=== PATIENT | female | born 1975 | race Hispanic/Latino ===

== ENCOUNTER 2019-10-31 13:00 | Inpatient (IN) | payer BC ==
[~2019-10-31] VITALS: Ht 167.6 cm; Wt 91.0 kg
--- NOTE | 2019-11-05 08:39 | NUR ---
CALLED THE OFFICE AND SPOKE TO RADHA IN REGARDS TO HEMOGLOBIN OF 10.4, PER RADHA SHE WILL SHOW THE DOCTOR AND CALL IF ANY ORDERS.
[2019-11-05 09:47] VITALS: BP 140/79; PULSE 61
[2019-11-06] VITALS (25 sets, daily range): BP systolic 123–153; BP diastolic 65–95; PULSE 52–82; RESP 10–18; TEMP 97.3–99.2
[2019-11-06] MEDS: CALDOLOR 800MG+NS 250ML 250 ML IV SCH ×3 (05:00→18:17)
[2019-11-06] MEDS: CEFAZOLIN SODIUM 1 GM VIAL IVP SCH ×2 (05:00→07:49)
[2019-11-06] MEDS ORDERED: LIDOCAINE PF 2% 5ML ABBOJECT ONE (07:23)
[2019-11-06] MEDS ORDERED: PROPOFOL 10 MG/ML 20ML VIAL IV ONE (07:23)
[2019-11-06] MEDS ORDERED: MEPERIDINE-PF 25 MG/ML SYG ONE ×3 (07:23→10:21)
[2019-11-06] MEDS ORDERED: ROCURONIUM 10MG/1ML SYR 10 MG/ML ML ONE (07:23)
[2019-11-06] MEDS ORDERED: FENTANYL CITRATE PF 50 MCG/1 ML 5ML AMP IV ONE (07:23)
[2019-11-06] MEDS: LACTATED RINGERS 1000ML 1,000 ML IV SCH ×2 (07:45→08:48)
[2019-11-06] MEDS ORDERED: NEOSTIGMINE 5MG/5ML SYR IV ONE (09:07)
[2019-11-06] MEDS ORDERED: ONDANSETRON HCL 4 MG/2 ML VIAL IVP PRN (10:00)
[2019-11-06] MEDS ORDERED: MEPERIDINE-PF 75 MG/ML SYG IM PRN (10:00)
[2019-11-06] MEDS ORDERED: PROMETHAZINE HCL 25 MG/ML 1ML AMPULE IM PRN ×2 (10:00)
[2019-11-06] MEDS ORDERED: BISACODYL 10 MG SUPP.RECT RC PRN (10:00)
[2019-11-06] MEDS ORDERED: ACETAMINOPHEN-CODEINE 300/30MG TAB PO PRN ×2 (10:00)
[2019-11-06] MEDS ORDERED: SIMETHICONE 80 MG TAB.CHEW PO PRN (10:00)
[2019-11-06] MEDS: DEXTROSE 5 %-0.45 % NACL 1,000 ML IV PRN ×2 (10:58→22:29)
[2019-11-06] MEDS: HYDROCODONE/ACETAMINOPHEN 5/325 MG TAB PO PRN ×2 (13:02→23:49)
[2019-11-06] MEDS ORDERED: MEPERIDINE-PF 100 MG/ML SYG ONE (15:39)
[2019-11-06] MEDS: DOCUSATE SODIUM 100 MG CAP PO PRN (21:48)
--- NOTE | 2019-11-06 22:42 | NUR ---
Communication; Dr. Pruett informed of patient high Blood Pressure of 150/95 , 153/93 she ordered to continue her home medication.
--- NOTE | 2019-11-06 23:00 | NUR ---
Patient; Patient took her own medication Amlodipine 2.5 mg p.o.
[2019-11-07] MEDS: CALDOLOR 800MG+NS 250ML 250 ML IV SCH (02:06)
[2019-11-07 03:59] VITALS: BP 146/89; PULSE 81; RESP 18; TEMP 97.9
[2019-11-07] MEDS: CEFAZOLIN SODIUM 1 GM VIAL IVP SCH (05:00)
[2019-11-07] MEDS: HYDROCODONE/ACETAMINOPHEN 5/325 MG TAB PO PRN (06:19)
--- NOTE | 2019-11-07 06:25 | NUR ---
York; York Catheter taken out patient tolerated well. Aide care done with scant vaginal brownish discharges. Abdominal binder applied to abdomen. Patient assisted to get up dangle her legs and sit at bedside chair.
[2019-11-07 07:22] VITALS: BP 154/93; PULSE 83; RESP 17; TEMP 98.3
--- NOTE | 2019-11-07 07:45 | NUR ---
PATIENT ASSESSED AND INCISION WITH DERMABOND LEFT OPEN TO AIR. AND NO DRAINAGE NOTED TO SITE AND NO REDNESS OR EDEMA NOTED. DENIES HAVING PAIN.
[2019-11-07] MEDS: DOCUSATE SODIUM 100 MG CAP PO PRN (08:32)
[2019-11-07] MEDS: DEXTROSE 5 %-0.45 % NACL 1,000 ML IV PRN (08:40)
[2019-11-07] MEDS ORDERED: FERROUS SULFATE 325 MG TABLET.DR PO SCH (09:00)
[2019-11-07] MEDS ORDERED: SIMETHICONE 80 MG TAB.CHEW PO PRN (09:00)
[2019-11-07] MEDS ORDERED: AMLODIPINE BESYLATE 2.5 MG TAB PO SCH (09:00)
[2019-11-07] MEDS ORDERED: VIT D 5000 UNIT PO SCH (09:00)
[2019-11-07] MEDS ORDERED: IBUPROFEN 800 MG TAB PO SCH (10:00)
[2019-11-07 11:25] VITALS: BP 133/88; PULSE 77; RESP 18; TEMP 97.9
--- NOTE | 2019-11-07 15:30 | NUR ---
PATIENT WAS GIVEN DISCHARGE INSTRUCTIONS AND VERBALIZED UNDERSTANDING I NSTRUCTIONS GIVEN. SCRIPT FOR PAIN MANAGEMENT AFTER DISCHARGE WAS GIVEN ON LAST DOCTOR'S VISIT AND PATIENT INSTRUCTED ON FREQUENCY AND DOSAGE.
--- NOTE | 2019-11-07 16:15 | NUR ---
PATIENT WAS TAKEN VIA W/C TO FAMILY VEHICLE IN STABLE CONDITION. PATIENT DENIES PAIN AND HAS REMAINED STABLE.
--- NOTE | 2019-11-07 16:15 | NUR ---
PATIENT WAS TAKEN VIA W/C TO FAMILY VEHICLE AND WAS DISCHARGED TO HER SPOUSE IN STABLE CONDITION. PATIENT DENIES PAIN.
== END 2019-11-07 16:15 | disposition home or self-care (01) | DRG 743 ==
LOC: EDSTATUS 13:00 → DAHIP 11-06 05:49 → WSH 11-06 10:45 → EDSTATUS 11-06 13:00
PROVIDERS: ADMIT Obstetrics & Gynecology; ATTEND Obstetrics & Gynecology
PROC: 0UT90ZZ Resection of Uterus, Open Approach (ICD-10-PCS; principal; 2019-11-06 07:44)
PROC: 0UT70ZZ Resection of Bilateral Fallopian Tubes, Open Approach (ICD-10-PCS; 2019-11-06 07:44)
DX: D25.9 Leiomyoma of uterus, unspecified (principal); Z20.828 Contact with and (suspected) exposure to other viral communicable diseases; I10 Essential (primary) hypertension